=== PATIENT | male | born 1950 | race Caucasian/White ===

== ENCOUNTER → 2020-05-31 | Outpatient (CLI) | payer OTHER ==
[~2020-05-31] MED LIST: ARMOUR THYROID90 M1 PO; ASA81BEC PO; B COMPLEX1 EACH PO; BENICAR40 MG PO; CINNAMON500 MG PO; COQ-10100 MG PO; DHEA25 MG PO; FENOFIBRATE160 MG PO; FISH OIL 1,001000 M3 PO; KLOR-CON 10 ER10 MEQ PO; MAGNESIUM250 M1 PO; ROSUVASTATIN CA40 MG PO; TEGRETOL200 MG PO; TOPROL XL50 MG PO; TRAMADOL 50 MG50 MG PO; VITAMIN D32400 UNIT/ SUBLING; VITAMIN E1000 UNIT PO; [UNRECOGNIZED DRUG - OTHER] PO; [UNRECOGNIZED DRUG - OTHER] PO
[2020-05-31 10:45] VITALS: BP 124/78
[2020-05-31 11:10] LABS: HEMATOCRIT 40.2 % (42.0-52.0); HEMOGLOBIN 14.2 gm/dL (14.0-18.0); MCH 33.1 pg (26.0-34.0); MCHC 35.3 g/dL (28.0-37.0); MCV 93.8 fL (80.0-100.0); RBC 4.29 mil/uL (4.50-6.00); RDW 12.4 % (10.5-14.5); WBC 6.7 thou/uL (4.0-11.0)
[2020-05-31 11:40] VITALS: BP 124/68
--- NOTE | 2020-05-31 14:28 | NUR ---
IN FOR THERAPEUTIC PHLEBOTOMY FOR HEMOCHROMATOSIS. ADMISSION HISTORY AND ASSESSMENT COMPLETED. CBC DONE. HGB 14.2, HCT 40.2. PER PARAMETERS THERAPEUTIC PHLEBOTOMY DONE. REMOVED 1 UNIT OF BLOOD WITHOUT DIFFICULTY. DRANK SOME WATER AND OBSERVED FOR 15 MINUTES. POST BP GOOD. DISMISSED IN STABLE CONDITION.
== END ==
LOC: OPONC 10:21
PROVIDERS: ATTEND Internal Medicine Hematology & Oncology
DX: E83.110 Hereditary hemochromatosis (principal)
CPT/HCPCS: 95100

== ENCOUNTER → 2020-06-14 | Outpatient (CLI) | payer OTHER ==
[2020-06-14 10:59] LABS: HEMATOCRIT 40.5 % (42.0-52.0); HEMOGLOBIN 14.1 gm/dL (14.0-18.0); MCH 33.1 pg (26.0-34.0); MCHC 34.8 g/dL (28.0-37.0); MCV 95.1 fL (80.0-100.0); RBC 4.26 mil/uL (4.50-6.00); RDW 12.8 % (10.5-14.5)
[2020-06-14 11:04] VITALS: BP 114/64
[2020-06-14 11:30] VITALS: BP 116/65
--- NOTE | 2020-06-14 11:35 | NUR ---
PT HERE FOR Q2W THERAPEUTIC PHLEBOTOMY FOR HEMACHRONATOSIS. CBC DRAWN FIRST, HGB 14.1, HCT 40.5. ONE FULL UNIT REMOVED WITH PHLEBOTOMY R AC WITHOUT INCIDENT, PT TOLERATED WELL, VSS. DRANK JUICE PRIOR TO LEAVING. SCHEDULED TO RETURN IN 2 WEEKS. DISMISSED IN STABLE CONDITION.
== END ==
LOC: OPONC 10:24
PROVIDERS: ATTEND Internal Medicine Hematology & Oncology
DX: E83.110 Hereditary hemochromatosis (principal)
CPT/HCPCS: 95100

== ENCOUNTER → 2020-06-27 | Outpatient (CLI) | payer OTHER ==
[2020-06-27 10:00] VITALS: BP 112/67
[2020-06-27 10:37] LABS: HEMATOCRIT 37.2 % (42.0-52.0); MCH 33.3 pg (26.0-34.0); MCHC 34.9 g/dL (28.0-37.0); MCV 95.4 fL (80.0-100.0); RBC 3.89 mil/uL (4.50-6.00); RDW 12.7 % (10.5-14.5); WBC 6.5 thou/uL (4.0-11.0)
[2020-06-27 12:20] VITALS: BP 124/70
--- NOTE | 2020-06-27 13:51 | NUR ---
IN FOR THERAPEUTIC PHLEBOTOMY FOR HEREDITARY HEMACHROMATOSIS. CBC DONE AND RESULTED. HGB 13.0, HCT 37.2. THERAPEUTIC PHLEBOTOMY 1 UNIT REMOVED. TOLERATED WELL. DRANK A CUP OF COFFEE AND OBSERVED FOR 20 MINUTES. POST BP STABLE. SCHEDULED TO RETURN IN 2 WEEKS FOR THE SAME. DISMISSED IN GOOD CONDITION.
== END ==
LOC: OPONC 08:27
PROVIDERS: ATTEND Internal Medicine Hematology & Oncology
DX: E83.110 Hereditary hemochromatosis (principal)
CPT/HCPCS: 95100

== ENCOUNTER → 2020-07-11 | Outpatient (CLI) | payer OTHER ==
[2020-07-11 10:35] VITALS: BP 116/75
[2020-07-11 10:43] LABS: HEMATOCRIT 37.5 % (42.0-52.0); HEMOGLOBIN 12.7 gm/dL (14.0-18.0); MCH 32.8 pg (26.0-34.0); MCHC 33.9 g/dL (28.0-37.0); MCV 96.5 fL (80.0-100.0); RBC 3.88 mil/uL (4.50-6.00); RDW 13.3 % (10.5-14.5)
[2020-07-11 11:15] VITALS: BP 118/67
--- NOTE | 2020-07-11 12:09 | NUR ---
IN FOR THERAPEUTIC PHLEBOTOMY FOR HEREDITARY HEMACHROMATOSIS. CBC DONE. HGB 12.7, HCT 37.5. THERAPEUTIC PHLEBOTOMY DONE. REMOVED 1 UNIT. TOLERATED WELL. DRANK 8 OZ OF ORANGE JUICE AND OBSERVED FOR 20 MINUTES. POST BP GOOD. TO RETURN IN 2 WEEKS FOR THE SAME. DISMISSED IN STABLE CONDITION.
== END ==
LOC: OPONC 09:05
PROVIDERS: ATTEND Internal Medicine Hematology & Oncology
DX: E83.110 Hereditary hemochromatosis (principal)
CPT/HCPCS: 95100

== ENCOUNTER → 2020-07-25 | Outpatient (CLI) | payer OTHER ==
[2020-07-25 10:20] VITALS: BP 146/64
[2020-07-25 10:30] LABS: HEMATOCRIT 38.8 % (42.0-52.0); HEMOGLOBIN 13.4 gm/dL (14.0-18.0); MCH 32.7 pg (26.0-34.0); MCHC 34.6 g/dL (28.0-37.0); MCV 94.5 fL (80.0-100.0); RBC 4.1 mil/uL (4.50-6.00); WBC 6.1 thou/uL (4.0-11.0)
[2020-07-25 11:05] VITALS: BP 147/73
== END ==
LOC: OPONC 10:06
PROVIDERS: ATTEND Internal Medicine Hematology & Oncology
DX: E83.110 Hereditary hemochromatosis (principal)
CPT/HCPCS: 95100

== ENCOUNTER → 2020-08-08 | Outpatient (CLI) | payer OTHER ==
[2020-08-08 10:15] VITALS: BP 109/64
[2020-08-08 10:32] LABS: HEMATOCRIT 39.6 % (42.0-52.0); HEMOGLOBIN 13.6 gm/dL (14.0-18.0); MCH 32.5 pg (26.0-34.0); MCHC 34.4 g/dL (28.0-37.0); MCV 94.6 fL (80.0-100.0); RBC 4.19 mil/uL (4.50-6.00); RDW 12.7 % (10.5-14.5); WBC 5.1 thou/uL (4.0-11.0)
[2020-08-08 11:25] VITALS: BP 108/63
--- NOTE | 2020-08-08 14:16 | NUR ---
IN FOR Q2WEEK THERAPEUTIC PHLEBOTOMY. CBC DONE. HGB 13.6, HCT 39.6. THERAPEUTIC PHLEBOTOMY DONE. REMOVED 1 UNIT BLOOD. TOLERATED WELL. POST VITAL SIGNS STABLE. DRANK SOME WATER AND OBSERVED FOR 20 MINUTES. DISMISSED IN STABLE CONDITION. TO RETURN ON Aug.22 FOR NEXT APPT.
== END ==
LOC: OPONC 10:07
PROVIDERS: ATTEND Internal Medicine Hematology & Oncology
DX: E83.110 Hereditary hemochromatosis (principal)
CPT/HCPCS: 95100

== ENCOUNTER → 2020-08-22 | Outpatient (CLI) | payer OTHER ==
[2020-08-22 10:10] VITALS: BP 122/67
[2020-08-22 10:26] LABS: HEMATOCRIT 40.4 % (42.0-52.0); HEMOGLOBIN 13.8 gm/dL (14.0-18.0); MCH 32.4 pg (26.0-34.0); MCHC 34.1 g/dL (28.0-37.0); MCV 94.9 fL (80.0-100.0); RBC 4.26 mil/uL (4.50-6.00); RDW 13.3 % (10.5-14.5); WBC 4.7 thou/uL (4.0-11.0)
[2020-08-22 10:45] VITALS: BP 129/65
--- NOTE | 2020-08-22 12:25 | NUR ---
IN FOR Q2WEEK THERAPEUTIC PHLEBLOTOMY FOR HEREDITARY HEMOCHROMATOSIS. PATIENT STATED FEELING WELL. CBC DRAWN. HGB 13.8/HCT40.4. PER STANDING ORDER PHLEBOTOMY DONE. REMOVED 1 UNIT WITHOUT DIFFICULTY. POST VITAL SIGNS GOOD. DRANK A GLASS OF WATER AND OBSERVED FOR 20 MINUTES. DISMISSED IN GOOD CONDITION. TO RETURN IN 2 WEEKS FOR THE SAME.
== END ==
LOC: OPONC 09:59
PROVIDERS: ATTEND Internal Medicine Hematology & Oncology
DX: E83.110 Hereditary hemochromatosis (principal)
CPT/HCPCS: 95100

== ENCOUNTER → 2020-09-05 | Outpatient (CLI) | payer OTHER ==
[2020-09-05 10:31] LABS: HEMATOCRIT 40.7 % (42.0-52.0); HEMOGLOBIN 13.8 gm/dL (14.0-18.0); MCH 32.3 pg (26.0-34.0); MCV 95.3 fL (80.0-100.0); RBC 4.27 mil/uL (4.50-6.00); WBC 7.1 thou/uL (4.0-11.0)
[2020-09-05 10:32] VITALS: BP 119/69
[2020-09-05 10:59] VITALS: BP 110/61
--- NOTE | 2020-09-05 12:23 | NUR ---
IN FOR THERAPEUTIC PHLEBOTOMY FOR HEMOCHROMATOSIS. CBC DONE. HGB 13.8/HCT40.7. PER STANDING ORDER OK TREAT PATIENT. BLOOD SCALE IS CALIBRATED PER BIOMED. REMOVED 1 UNIT BLOOD/500 ML USING BLOOD BANK BAG. PATIENT TOLERATED WELL. PATIENT DRANK A GLASS OF WATER AND OBSERVED FOR 20 MINUTES. PATIENT DID NOT WANT CHEESE CRACKERS. POST BP GOOD. PATIENT IS HAVING HIP REPLACEMENT SURGERY SEP. 2, SO WILL NOT RETURN IN 2 WEEKS. PATIENT HAS AN APPT WITH DR. GUZMAN AND WILL DISCUSS THE CONTINUATION OF THESE PHLEBOTOMIES. PATIENT HAS PLANS TO GO TO [place] FOR THE WINTER SO MAY NOT RETURN HERE FOR SEVERAL MONTHS. DISMISSED IN STABLE CONDITION.
== END ==
LOC: OPONC 10:04
PROVIDERS: ATTEND Internal Medicine Hematology & Oncology
DX: E83.110 Hereditary hemochromatosis (principal)
CPT/HCPCS: 95100

== ENCOUNTER → 2020-09-26 | Outpatient (CLI) | payer OTHER ==
[2020-09-26 10:00] VITALS: BP 120/70
[2020-09-26 10:14] LABS: HEMATOCRIT 37.2 % (42.0-52.0); HEMOGLOBIN 12.6 gm/dL (14.0-18.0); MCH 32.4 pg (26.0-34.0); MCHC 33.9 g/dL (28.0-37.0); MCV 95.5 fL (80.0-100.0); RBC 3.9 mil/uL (4.50-6.00); RDW 13.2 % (10.5-14.5); WBC 6.7 thou/uL (4.0-11.0)
[2020-09-26 10:55] VITALS: BP 120/62
--- NOTE | 2020-09-26 11:08 | NUR ---
IN FOR THERAPEUTIC PHLEBOTOMY FOR HEMOCHROMATOSIS. PATIENT HAD A RT HIP REPLACEMENT 1 WEEK AGO AND HAS MINIMAL PAIN. ABLE TO WALK WITH A CANE. CBC DRAWN. HGB 12.6/HCT 37.2. SCALE CALIBRATED BY [employer]. THERAPEUTIC PHLEBOTOMY DONE FROM [facility] ACCESS SITE. REMOVED 1 UNIT, 500 ML AND TOLERATED WELL. OBSERVED FOR 20 MINUTES AND DRANK A GLASS OF WATER. REFUSED CRACKERS. POST BP GOOD. DISMISSED IN STABLE CONDITION. TO RETURN IN 2 WEEKS FOR THE SAME.
== END ==
LOC: OPONC 09:54
PROVIDERS: ATTEND Internal Medicine Hematology & Oncology
DX: E83.110 Hereditary hemochromatosis (principal)
CPT/HCPCS: 95100

== ENCOUNTER → 2020-10-09 | Outpatient (CLI) | payer OTHER ==
[2020-10-09 10:33] LABS: HEMATOCRIT 38.4 % (42.0-52.0); HEMOGLOBIN 12.9 gm/dL (14.0-18.0)
[2020-10-09 10:50] VITALS: BP 117/67
--- NOTE | 2020-10-09 11:00 | NUR ---
PT HERE FOR Q2W THERAPEUTIC PHLEBOTOMY. HGB 12.9, HCT 38.4 SO MET PARAMETERS TO TREAT. ONE UNIT OBTAINED WITHOUT INCIDENT, GOOD FLOW FROM RIGHT AC. TOLERATED WELL. VSS. NO CONCERNS NOTED. PT WILL NOT BE IN TOWN IN 2 WEEKS SO WILL HAVE HIS PHLEBOTOMY AT THE LOC[facility]. 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 DISMISSED IN STABLE CONDITION.
== END ==
LOC: OPONC 10:07
PROVIDERS: ATTEND Internal Medicine Hematology & Oncology
DX: E83.110 Hereditary hemochromatosis (principal)
CPT/HCPCS: 95100

== ENCOUNTER → 2020-11-07 | Outpatient (CLI) | payer OTHER ==
[2020-11-07 10:10] VITALS: BP 154/74
[2020-11-07 10:31] LABS: MCH 32.4 pg (26.0-34.0); MCHC 34.2 g/dL (28.0-37.0); MCV 94.6 fL (80.0-100.0); RBC 4.02 mil/uL (4.50-6.00); RDW 13.1 % (10.5-14.5); WBC 8.6 thou/uL (4.0-11.0)
[2020-11-07 11:00] VITALS: BP 157/78
--- NOTE | 2020-11-07 13:21 | NUR ---
IN FOR Q2WEEK THERAPEUTIC PHLEBOTOMY. CBC DONE. HGB 13.0, HCT 38. PER PARAMETERS OF KEEP HGB >11 AND HCT>33, THERAPEUTIC PHLEBOTOMY DONE. SCALE CALIBRATED PRIOR TO PHLEBOTOMY. ACCESSED LAC VEIN WITHOUT DIFFICULTY. REMOVED 16 OZ, 500 ML USING PHLEBOTOMY BAG AND SCALE. PATIENT TOLERATED WELL. DRANK SOME ICE TEA AND OBSERVED FOR 20 MINUTES. POST BP STABLE. DENIED DIZZINESS OR WEAKNESS. DISMISSED IN STABLE CONDITION. PATIENT IS GOING TO [place] TO WINTER, WILL RETURN IN JANUARY AND CONTACT US AT THAT TIME.
== END ==
LOC: OPONC 08:08
PROVIDERS: ATTEND Internal Medicine Hematology & Oncology
DX: E83.110 Hereditary hemochromatosis (principal)
CPT/HCPCS: 95100

== ENCOUNTER → 2021-02-05 | Outpatient (CLI) | payer OTHER ==
[2021-02-05 13:15] VITALS: BP 116/71
[2021-02-05 13:39] LABS: HEMATOCRIT 42.5 % (42.0-52.0); HEMOGLOBIN 14.7 gm/dL (14.0-18.0); MCH 32.9 pg (26.0-34.0); MCHC 34.5 g/dL (28.0-37.0); MCV 95.4 fL (80.0-100.0); RBC 4.46 mil/uL (4.50-6.00); RDW 13.1 % (10.5-14.5); WBC 5.9 thou/uL (4.0-11.0)
[2021-02-05 14:10] VITALS: BP 126/75
--- NOTE | 2021-02-05 15:09 | NUR ---
ARRIVED FOR THERAPEUTIC PHLEBOTOMY. PRE CBC DRAWN AND RESULTS NOTED AND FAXED TO DOCTOR. HGB 14.7 HCT 42.5. BLOOD REMOVED PER PROTOCAL FROM LAC. POST BP WNL. 8 OUNCES OF ORANGE JUICE GIVEN. PATIENT VOICES NO COMPLAINTS. DC AMBULATORY IN STABLE CONDITION. TO RETURN IN 2 WEEKS.
== END ==
LOC: OPONC 09:38
PROVIDERS: ATTEND Internal Medicine Hematology & Oncology
DX: E83.110 Hereditary hemochromatosis (principal)
CPT/HCPCS: 95100

== ENCOUNTER → 2021-02-19 | Outpatient (CLI) | payer OTHER ==
[2021-02-19 13:30] VITALS: BP 132/78
[2021-02-19 13:34] LABS: HEMATOCRIT 40.3 % (42.0-52.0); HEMOGLOBIN 13.8 gm/dL (14.0-18.0); MCH 33.3 pg (26.0-34.0); MCHC 34.4 g/dL (28.0-37.0); RBC 4.15 mil/uL (4.50-6.00); WBC 5.5 thou/uL (4.0-11.0)
[2021-02-19 14:08] VITALS: BP 161/77
--- NOTE | 2021-02-19 14:15 | NUR ---
HERE FOR Q2W THERAPEUTIC PHLEBOTOMY. REPORTS DOING WELL, FEELING WELL. CBC DRAWN, MET PARAMETERS FOR PHLEBOTOMY, HGB 13.8, HCT 40.3, ONE FULL UNIT OBTAINED WITH GOOD FLOW. PT DRANK ONE GLASS OF WATER POST, DENIED ANY UNTOWARD EFFECTS. ENCOURAGED TO DRINK PLENTY OF FLUIDS OVER NEXT DAY. DISMISSED IN STABLE CONDITIION. SCHEDULED TO RETURN IN 2 WEEKS.
== END ==
LOC: OPONC 12:17
PROVIDERS: ATTEND Internal Medicine Hematology & Oncology
DX: E83.110 Hereditary hemochromatosis (principal)
CPT/HCPCS: 95100

== ENCOUNTER → 2021-03-13 | Outpatient (CLI) | payer OTHER ==
[2021-03-13 13:13] VITALS: BP 167/79
[2021-03-13 13:16] LABS: HEMATOCRIT 40.7 % (42.0-52.0); HEMOGLOBIN 13.9 gm/dL (14.0-18.0); MCH 32.9 pg (26.0-34.0); MCHC 34.1 g/dL (28.0-37.0); MCV 96.4 fL (80.0-100.0); RBC 4.22 mil/uL (4.50-6.00); RDW 13.1 % (10.5-14.5); WBC 6.2 thou/uL (4.0-11.0)
[2021-03-13 13:42] VITALS: BP 157/72
--- NOTE | 2021-03-13 14:06 | NUR ---
IN FOR THERAPEUTIC PHLEBOTOMY FOR HEMOCHROMATOSIS. PATIENT STATED FEELING WELL. CBC DRAWN AND HGB 13.9/HCT 40.7. PER STANDING ORDERS OF DO THERAPEUTIC PHLEBOTOMY IF HGB>11.0 AND HCT>33%. THERAPEUTIC PHLEBOTOMY DONE. REMOVED 1 UNIT/509 GM. PATIENT TOLERATED WELL. POST VITAL SIGNS STABLE. PATIENT DRANK A GLASS OF WATER AND OBSERVED FOR 20 MINUTES. NEXT APPT ON March. DISMISSED IN GOOD CONDITION.
== END ==
LOC: OPONC 08:31
PROVIDERS: ATTEND Internal Medicine Hematology & Oncology
DX: E83.119 Hemochromatosis, unspecified (principal)
CPT/HCPCS: 95100

== ENCOUNTER → 2021-04-10 | Outpatient (CLI) | payer OTHER ==
[2021-04-10 10:36] LABS: HEMATOCRIT 41.3 % (42.0-52.0); HEMOGLOBIN 14.3 gm/dL (14.0-18.0); MCH 33.2 pg (26.0-34.0); MCHC 34.6 g/dL (28.0-37.0); RBC 4.3 mil/uL (4.50-6.00); RDW 12.6 % (10.5-14.5); WBC 4.5 thou/uL (4.0-11.0)
[2021-04-10 10:50] VITALS: BP 132/71
[2021-04-10 11:10] VITALS: BP 138/80
--- NOTE | 2021-04-10 14:55 | NUR ---
PT HERE FOR HIS Q2WEEK THERAPEUTIC PHLEBOTOMY. REPORTS DOING WELL, FEELING WELL. HAD BREAKFAST, HAS WATER WITH HIM TO DRINK. CHECKED LABS AND MET PARAMETERS TO DO PHLEBOTOMY. HGB 14.3, HCT 41.3. THERAPEUTIC PHLEBOTOMY PERFORMED WITHOUT INCIDENT RAC. TOLERATED WELL. PRESSURE APPLIED POST WITH GOOD HEMOSTASIS. DRINKING WATER POST, WATCHED FOR 20 MIN THEN DISMISSED IN STABLE CONDITION. SCHEDULED TO RETURN AGAIN IN 2 WEEKS.
== END ==
LOC: OPONC 10:26
PROVIDERS: ATTEND Internal Medicine Hematology & Oncology
DX: E83.110 Hereditary hemochromatosis (principal)
CPT/HCPCS: 95100

== ENCOUNTER → 2021-04-24 | Outpatient (CLI) | payer OTHER ==
[2021-04-24 10:10] VITALS: BP 145/72
[2021-04-24 10:49] LABS: HEMATOCRIT 39.6 % (42.0-52.0); HEMOGLOBIN 13.7 gm/dL (14.0-18.0); MCH 33.3 pg (26.0-34.0); MCHC 34.6 g/dL (28.0-37.0); MCV 96.3 fL (80.0-100.0); RBC 4.11 mil/uL (4.50-6.00); RDW 12.9 % (10.5-14.5); WBC 4.5 thou/uL (4.0-11.0)
--- NOTE | 2021-04-24 15:20 | NUR ---
ARRIVED AMBULATORY FOR EVERY TWO WEEK THERAPEUTIC PHLEBOTOMY. CBC DRAWN BY LAB. RESULTED AND FAXIED TO . HGB 13.7, HCT 39.6 STATES HE HAS BEEN FEELING WELL. 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 PARAMETERS WERE MEANT TO DO THERAPEUTIC PHLEBOTOMY AND ONE UNIT WAS REMOVED PER PROTOCOL FROM RIGHT AC. HEMOSTASIS NOTED RAC AND COBAN DRESSING APPLIED. PT INSTURCTED TO REMOVE WHEN HE GETS HOME. POST BP 143/73. PATIENT HYDRATED WITH WATER AND ORANGE JUICE PRIOR TO PHLEBOTOMY AND WATER AFTER PHLEBOTOMY. SCHEDULED TO RETURN IN TWO WEEKS. PATIENT HAS SURGERY FOR HIS RIGHT ROTATOR CUFF ON 04/28/21. INSTRUCTED TO CALL IF HE NEEDS TO RESCHEDULE HIS APPOINTMENT. DC AMBULATORY IN STABLE CONDITION. VOICED NO COMPLAINTS.
== END ==
LOC: OPONC 11:01
PROVIDERS: ATTEND Internal Medicine Hematology & Oncology
DX: E83.110 Hereditary hemochromatosis (principal)
CPT/HCPCS: 95100

== ENCOUNTER → 2021-05-08 | Outpatient (CLI) | payer OTHER ==
[2021-05-08 11:53] LABS: HEMATOCRIT 38.4 % (42.0-52.0); HEMOGLOBIN 13.3 gm/dL (14.0-18.0); MCH 33.4 pg (26.0-34.0); MCHC 34.6 g/dL (28.0-37.0); MCV 96.3 fL (80.0-100.0); RBC 3.99 mil/uL (4.50-6.00); RDW 12.7 % (10.5-14.5); WBC 5.8 thou/uL (4.0-11.0)
[2021-05-08 15:20] VITALS: BP 157/76
== END ==
LOC: OPONC 10:44
PROVIDERS: ATTEND Internal Medicine Hematology & Oncology
DX: E83.110 Hereditary hemochromatosis (principal)
CPT/HCPCS: 95100

== ENCOUNTER → 2021-05-21 | Outpatient (CLI) | payer OTHER ==
[~2021-05-21] MED LIST changes: +B12 ACTIVE1000 MCG PO; +FOLIC ACID1 MG SUBLING
[2021-05-21 10:32] LABS: HEMATOCRIT 39.9 % (42.0-52.0); HEMOGLOBIN 13.8 gm/dL (14.0-18.0); MCH 33.5 pg (26.0-34.0); MCHC 34.5 g/dL (28.0-37.0); MCV 97.2 fL (80.0-100.0); RBC 4.1 mil/uL (4.50-6.00); RDW 12.9 % (10.5-14.5); WBC 4.8 thou/uL (4.0-11.0)
[2021-05-21 10:50] VITALS: BP 140/72
[2021-05-21 11:05] VITALS: BP 150/75
--- NOTE | 2021-05-21 11:10 | NUR ---
HERE FOR THERAPEUTIC PHLEBOTOMY FOR HEMACHROMATOSIS. PRE PROCEDURE LABS DRAWN, HGB 13.8, HCT 39.9. MET PARAMETERS FOR DRAW SO ONE FULL UNIT REMOVED PER R AC WITHOUT DIFFICULTY. PT TOLERATED WELL, VSS, HEMOSTASIS OBTAINED AND PRESSURE DRESSING APPLIED. PT DRINKING WATER AND REMINDED TO INCREASE FLUID INTAKE OVER NEXT 24-48 HOURS. HEADING OUT OF TOWN THIS AFTERNOON. DISMISSED IN STABLE CONDITION. SCHEDULED TO RETURN ON 06/05.
== END ==
LOC: OPONC 12:13
PROVIDERS: ATTEND Internal Medicine Hematology & Oncology
DX: E83.110 Hereditary hemochromatosis (principal)
CPT/HCPCS: 95100

== ENCOUNTER → 2021-06-05 | Outpatient (CLI) | payer OTHER ==
[2021-06-05 10:24] LABS: HEMATOCRIT 40.4 % (42.0-52.0); HEMOGLOBIN 13.9 gm/dL (14.0-18.0); MCHC 34.4 g/dL (28.0-37.0); MCV 95.8 fL (80.0-100.0); RBC 4.22 mil/uL (4.50-6.00); WBC 5.4 thou/uL (4.0-11.0)
[2021-06-05 11:27] VITALS: BP 141/69
--- NOTE | 2021-06-05 13:57 | NUR ---
HERE FOR EVERY 2 WEEK THERAPEUTIC PHLEBOTOMY. CBC DRAWN AND SENT TO LAB. HGB 13.9 AND HCT 40.4. STANDING ORDERS OK TO PROCEED WITH PHLEBOTOMY. REMOVED ONE UNIT OF BLOOD (536.3 GM) PER CALIBRATED SCALE. PATIENT TOLERATED PROCEDURE WELL. POST BP 131/63. ATE CRACKERS AND DRANK 10 OUNCES OF WATER WHILE HERE FOR TREATMENT. DISCHARGED AMBULATORY IN STABLE CONDITION. WILL RETURN IN TWO WEEKS FOR NEXT TREATMENT. CBC FAXED TO DR. GUZMAN'S OFFICE.
== END ==
LOC: OPONC 10:26
PROVIDERS: ATTEND Internal Medicine Hematology & Oncology
DX: E83.110 Hereditary hemochromatosis (principal)
CPT/HCPCS: 95100

== ENCOUNTER → 2021-06-19 | Outpatient (CLI) | payer OTHER ==
[2021-06-19 10:30] VITALS: BP 168/66
[2021-06-19 10:41] LABS: HEMATOCRIT 40.6 % (42.0-52.0); HEMOGLOBIN 13.8 gm/dL (14.0-18.0); MCH 32.7 pg (26.0-34.0); MCHC 33.9 g/dL (28.0-37.0); MCV 96.3 fL (80.0-100.0); RBC 4.22 mil/uL (4.50-6.00); WBC 5.5 thou/uL (4.0-11.0)
[2021-06-19 11:20] VITALS: BP 176/75
--- NOTE | 2021-06-19 13:32 | NUR ---
PT HERE FOR Q2 WEEK THERAPEUTIC PHLEBOTOMY. CBC DRAWN. HGB: 13.8, HCT: 40.6. FAXED LAB RESULTS TO DR OLIVAS. REMOVED 1 UNIT (525 GM) PER ORDER USING R AC. PT TOLERATED PROCEDURE WITH NO COMPLICATIONS. VITAL SIGNS STABLE. ENCOURAGED FLUID INTAKE. PT LEFT UNIT IN STABLE CONDITION. SCHEDULED TO RETURN ON 07/03/21.
== END ==
LOC: OPONC 13:31
PROVIDERS: ATTEND Internal Medicine Hematology & Oncology
DX: E83.110 Hereditary hemochromatosis (principal)
CPT/HCPCS: 95100

== ENCOUNTER → 2021-07-03 | Outpatient (CLI) | payer OTHER ==
[2021-07-03 10:00] VITALS: BP 142/67
[2021-07-03 10:16] LABS: HEMATOCRIT 40.5 % (42.0-52.0); MCH 33.2 pg (26.0-34.0); MCHC 34.6 g/dL (28.0-37.0); MCV 96.1 fL (80.0-100.0); RBC 4.21 mil/uL (4.50-6.00); RDW 13.1 % (10.5-14.5); WBC 5.6 thou/uL (4.0-11.0)
[2021-07-03 10:45] VITALS: BP 126/73
--- NOTE | 2021-07-03 15:57 | NUR ---
PT HERE FOR Q2 WEEK THERAPEUTIC PHLEBOTOMY. NO NEW SYMPTOMS TO REPORT. HGB 14, HCT 40.5. ONE UNIT, 530.2 GM, REMOVED PER ORDER. USED RIGHT A/C FOR PHLEBOTOMY. TOLERATED PROCEDURE WITH NO COMPLICATIONS. VITAL SIGNS STABLE. PT DRANK 2 CARTONS OF ORANGE JUICE WHILE HERE. CBC RESULTS FAXED TO DR. GUZMAN. PT SCHEDULED TO RETURN 07/17/21. LEFT UNIT IN STABLE CONDITION.
== END ==
LOC: OPONC 09:43
PROVIDERS: ATTEND Internal Medicine Hematology & Oncology
DX: E83.110 Hereditary hemochromatosis (principal)
CPT/HCPCS: 95100

== ENCOUNTER → 2021-07-17 | Outpatient (CLI) | payer OTHER ==
[2021-07-17 10:00] VITALS: BP 144/69
[2021-07-17 10:17] LABS: HEMATOCRIT 43.3 % (42.0-52.0); HEMOGLOBIN 14.4 gm/dL (14.0-18.0); MCH 32.5 pg (26.0-34.0); MCHC 33.3 g/dL (28.0-37.0); MCV 97.7 fL (80.0-100.0); RBC 4.43 mil/uL (4.50-6.00); RDW 13.4 % (10.5-14.5); WBC 6.3 thou/uL (4.0-11.0)
[2021-07-17 10:30] VITALS: BP 137/76
--- NOTE | 2021-07-17 12:32 | NUR ---
PT HERE FOR Q2 WEEK THERAPEUTIC PHLEBOTOMY. NO NEW SYMPTOMS OR CONCERNS TO REPORT. CBC DRAWN PER ORDER: HGB 14.4, HCT 43.3. WITHIN PARAMETERS. THERAPEUTIC PHLEBOTOMY PERFORMED. 534 GM REMOVED USING CALIBRATED SCALE. PT TOLERATED TREATMENT WELL. VSS PRE AND POST PHLEBOTOMY. PT LEFT UNIT IN STABLE CONDITION. ENCOURAGED FLUID INTAKE. SCHEDULED TO RETURN 07/31/21. LAB RESULTS FAXED TO DR GUZMAN'S OFFICE.
== END ==
LOC: OPONC 10:17
PROVIDERS: ATTEND Internal Medicine Hematology & Oncology
DX: E83.110 Hereditary hemochromatosis (principal)
CPT/HCPCS: 95100

== ENCOUNTER → 2021-07-31 | Outpatient (CLI) | payer OTHER ==
[2021-07-31 10:15] VITALS: BP 154/75
[2021-07-31 11:14] LABS: HEMOGLOBIN 13.7 gm/dL (14.0-18.0); MCH 33.1 pg (26.0-34.0); MCHC 34.3 g/dL (28.0-37.0); MCV 96.6 fL (80.0-100.0); RBC 4.14 mil/uL (4.50-6.00); RDW 13.1 % (10.5-14.5); WBC 5.3 thou/uL (4.0-11.0)
[2021-07-31 11:45] VITALS: BP 152/77
--- NOTE | 2021-07-31 13:42 | NUR ---
PT HERE FOR Q2 WEEK THERAPEUTIC PHLEBOTOMY. NO NEW SYMPTOMS TO REPORT. THIS IS PT'S LAST APPT BEFORE GOING TO [place] FOR THE WINTER. PRE-TREATMENT LABS DRAWN BY LABORATORY. HGB 13.7, HCT 40.0. THERAPEUTIC PHLEBOTOMY PERFORMED PER ORDER USING R AC. 510 GM REMOVED, MEASURED WITH CALIBRATED SCALE. PT TOLERATED PROCEDURE WITH NO COMPLICATIONS. DRANK 2 ORANGE JUICE CARTONS AND A CUP OF WATER WHILE HERE. VITAL SIGNS STABLE. AMBULATED OUT OF UNIT WITH NO CONCERNS. LAB RESULTS FAXED TO DR GUZMAN. PT WILL CALL WHEN HE RETURNS FROM [place] TO SCHEDULE NEXT APPT.
== END ==
LOC: OPONC 14:53
PROVIDERS: ATTEND Internal Medicine Hematology & Oncology
DX: E83.110 Hereditary hemochromatosis (principal)
CPT/HCPCS: 95100

== ENCOUNTER → 2021-09-17 | Outpatient (CLI) | payer OTHER ==
[2021-09-17 09:05] VITALS: BP 152/84
[2021-09-17 09:08] LABS: HEMATOCRIT 43.6 % (42.0-52.0); HEMOGLOBIN 14.8 gm/dL (14.0-18.0); MCH 32.9 pg (26.0-34.0); MCV 96.8 fL (80.0-100.0); RBC 4.51 mil/uL (4.50-6.00); RDW 12.6 % (10.5-14.5)
[2021-09-17 09:32] VITALS: BP 152/84
== END ==
LOC: OPONC 12:16
PROVIDERS: ATTEND Internal Medicine Hematology & Oncology
DX: E83.110 Hereditary hemochromatosis (principal)
CPT/HCPCS: 95100

== ENCOUNTER → 2021-09-29 | Outpatient (CLI) | payer OTHER ==
[2021-09-29 09:15] VITALS: BP 137/66
[2021-09-29 09:21] LABS: HEMATOCRIT 40.5 % (42.0-52.0); HEMOGLOBIN 13.8 gm/dL (14.0-18.0); MCH 32.6 pg (26.0-34.0); MCHC 34.1 g/dL (28.0-37.0); MCV 95.7 fL (80.0-100.0); RBC 4.23 mil/uL (4.50-6.00); RDW 12.6 % (10.5-14.5); WBC 5.2 thou/uL (4.0-11.0)
[2021-09-29 09:35] VITALS: BP 140/63
--- NOTE | 2021-09-29 11:50 | NUR ---
HERE FOR REPEAT THERAPEUTIC PHLEBOTOMY. STATES TOLERATED ONE ON THE 1ST WITHOUT ANY UNTOWARD SIDE EFFECTS. CBC DRAWN, MEETS PARAMETERS, HGB 13.8, HCT 40.5. ONE UNIT BLOOD REMOVED, 533.8GM, PER RIGHT AC. PT TOLERATED WELL. DRANK GLASS OF WATER WHILE HERE, HAD BREAKFAST PRIOR TO ARRIVAL. ENCOURAGED INCREASED FLUID INTAKE OVER THE NEXT 24 HOURS. DISMISSED IN STABLE CONDITION. SCHEDULED TO RETURN AGAIN ON 10/09.
== END ==
LOC: OPONC 09:50
PROVIDERS: ATTEND Internal Medicine Hematology & Oncology
DX: E83.110 Hereditary hemochromatosis (principal)
CPT/HCPCS: 95100

== ENCOUNTER → 2021-10-09 | Outpatient (CLI) | payer OTHER ==
[2021-10-09 09:34] LABS: HEMOGLOBIN 13.9 gm/dL (14.0-18.0); MCH 32.6 pg (26.0-34.0); MCHC 33.9 g/dL (28.0-37.0); RBC 4.27 mil/uL (4.50-6.00); RDW 12.5 % (10.5-14.5); WBC 6.3 thou/uL (4.0-11.0)
[2021-10-09 11:05] VITALS: BP 121/61
--- NOTE | 2021-10-09 11:11 | NUR ---
HERE FOR THERAPEUTIC PHLEBOTMY. PATIENT STATES HE IS WELL HYDRATED. TOKK OFF ONE UNIT OF BLOOD (541.3GM) USING CALIBRATED SCALE. TOLERATED PROCEDURE WELL. HYDRATED AFTER PHLEBOTOMY. POST PHLEBOTOMY VITAL SIGNS PULSE 57 BP 126/60 O2 SAT 95 %. DC IN STABLE CONDITION. WILL BE IN [place] FOR THE WINTER. PATIENT WILL CALL WHEN HE RETURNS TO SET UP HIS NEXT APPOINTMENT AT THE CLINIC.
== END ==
LOC: OPONC 10:34
PROVIDERS: ATTEND Internal Medicine Hematology & Oncology
DX: E83.110 Hereditary hemochromatosis (principal)
CPT/HCPCS: 95100